=== PATIENT | female | born 1990 | race Caucasian/White ===

== ENCOUNTER 2022-06-27 11:26 | Outpatient (CLI) | payer BC, SELFPAY ==
[2022-06-27 11:35] VITALS: PULSE 96; O2SAT 98
[2022-06-27 11:50] VITALS: BP 111/57; PULSE 90; RESP 16; TEMP 37.3; O2SAT 98
[2022-06-27 11:53] VITALS: BP 111/57; PULSE 90
--- NOTE | 2022-06-27 12:32 | PC.OBNST ---
NST Note NST Note Start: 06/27/22 11:27 Freq: ONCE Status: Active Protocol: Document 06/27/22 12:31 HOLDENYH (Rec: 06/27/22 12:32 CUELIZABETHY [id number]) NST Note 3 Para (# of births) 1 EDC 07/10/22 Gestational Age In Weeks & Days 38 Weeks & 1 Days Patient Presented with Complaint(s) of Pain If Pain, describe location Upper abdominal pain Reactive Yes Appropriate for Gestational Age Yes RN Suzie Bautista RN Date 06/27/22 Reactive Yes Appropriate for Gestational Age Yes SHANAE Barajas RN Date 06/27/22 OB NST charge Yes Complete NST Note via Write Note Yes The provider's electronic signature indicates the NST is reactive/appropriate for gestational age. *Note to provider: If an addendum is required, open the patient's chart and click on the note under the Nurse/Allied Health tab.
== END 2022-06-27 12:15 | disposition home or self-care (01) ==
LOC: OB OUT 11:26 → OB 11:26
PROVIDERS: PCP Family Medicine; Visit Provider Family Medicine
DX: O47.1 False labor at or after 37 completed weeks of gestation (principal); Z3A.38 38 weeks gestation of pregnancy
CPT/HCPCS: 59025; 99213

== ENCOUNTER 2022-06-30 17:58 | Outpatient (CLI) | payer BC, SELFPAY ==
[2022-06-30 18:26] VITALS: RESP 18; TEMP 37.2
[2022-06-30 18:27] VITALS: BP 109/56
[2022-06-30 18:35] VITALS: PULSE 83; O2SAT 98
--- NOTE | 2022-06-30 19:15 | PC.OBNST ---
NST Note NST Note Start: 06/30/22 18:10 Freq: ONCE Status: Active Protocol: Document 06/30/22 19:13 LUZ ELENA (Rec: 06/30/22 19:14 LUZ ELENA [id number]) NST Note 3 Para (# of births) 1 EDC 07/10/22 Gestational Age In Weeks & Days 38 Weeks & 4 Days Patient Presented with Complaint(s) of Other Other Complaints Increased movement Reactive Yes Appropriate for Gestational Age Yes RN Kimberlyn Rojas RN Date 06/30/22 Reactive Yes Appropriate for Gestational Age Yes SHANAE Noguera RN Date 06/30/22 OB NST charge Yes Complete NST Note via Write Note Yes The provider's electronic signature indicates the NST is reactive/appropriate for gestational age. *Note to provider: If an addendum is required, open the patient's chart and click on the note under the Nurse/Allied Health tab.
== END 2022-06-30 19:00 | disposition home or self-care (01) ==
LOC: OB OUT 17:59 → OB 18:00
PROVIDERS: PCP Family Medicine; Visit Provider Family Medicine
DX: O35.8XX0 Maternal care for other (suspected) fetal abnormality and damage, not applicable or unspecified (principal); Z3A.38 38 weeks gestation of pregnancy
CPT/HCPCS: 59025; 99213

== ENCOUNTER 2022-07-18 17:01 | Inpatient (IN) | payer BC, SELFPAY ==
[2022-07-18 17:24] VITALS: PULSE 86; O2SAT 98
[2022-07-18 17:27] VITALS: BP 100/56; PULSE 90; RESP 16; TEMP 37
[2022-07-18] MEDS: miSOPROStoL 25 MCG/0.25 TABLET PO ×3 (18:25→22:30)
[2022-07-18 18:36] VITALS: BMI 41.6
[2022-07-18 19:16] LABS: SARS PCR* Negative SARS-CoV-2 (Negative)
[2022-07-18 19:25] VITALS: BP 110/64; PULSE 92; PULSE 95; RESP 18; TEMP 36.9; O2SAT 98
[2022-07-18 19:31] LABS: Basophils Absolute Auto 0.02 K/uL (0.00-0.30); Basophils Percent Auto 0.2 % (0.0-3.0); Eosinophils Absolute Auto 0.05 K/uL (0.00-0.50); Eosinophils Percent Auto 0.5 % (0.0-7.0); Hematocrit 34.1 % (33.0-51.0); Hemoglobin* 11.4 gm/dL (12.0-16.0); Immature Granulocytes Abs Auto 0.01 K/uL (0.00-0.30); Immature Granulocytes Pct Auto 0.1 %; Lymphocytes Percent Auto 19.7 % (20-44); Mean Corpuscular HGB Conc 33 gm/dL (32-36); Mean Corpuscular Hemoglobin 30 pg (26-34); Mean Corpuscular Volume 89 fL (80-100); Monocytes Percent Auto 7.7 % (0.0-11.0); Neutrophils Absolute Auto 7.26 K/uL (1.7-7.0); Neutrophils Percent Auto 71.8 % (42.0-72.0); Platelet Count* 284 K/uL (140-440); RDW Coefficient of Variation % 14.8 % (11.5-15.5); Red Blood Count 3.85 m/uL (4.00-5.20); White Blood Count* 10.11 K/uL (4.50-11.00)
[2022-07-18 19:32] LABS: Slide Review Reflex No
--- NOTE | 2022-07-18 19:49 | PM.OBHPLI ---
OB - H&P: HPI Labor/Induction History of Present Illness Time Seen by Provider: 19:49 Date Seen: 07/18/22 Chief Complaint: The patient is a 32 year old 3 para 1 at 41.1 weeks gestation by LMP and consistent with 9 week ultrasound, who presents with IOL for postdates. Chief complaint: Maternity : 3 Para: 1 Indications for induction: other (postdates) Narrative: Shirley Hart is a 32 year old female who presents for IOL for postdates. She did have IUGR during that resolved with growth ultrasounds. Her was conceived by use of femara and ovidrel for ovulation. Conceived at home. (no IUI). Ovulation day should have been 10/19 or 10/20. LMP 10/03/21. First child (son) had ASD/VSD, so echo was done and was found to be WNL. History of Present Dating criteria: based on LMP care: good care Ultrasounds: normal 1st trimester US and normal mid trimester US Abnormal ultrasound findings: IUGR, resolved Medical complications: none Labs Blood type: B (-) negative Rubella: immune RPR/VDLR: nonreactive GBS status: negative HBsAG: negative Review of Systems Status of ROS: Reports: 10 or more systems reviewed and unremarkable except as noted in History and below Const: Reports: fatigue; Denies: fever or chills Eyes: Denies: change in vision or blurry vision ENMT: Denies: throat pain Cardio: Reports: lightheadedness; Denies: chest pain, palpitations, edema or shortness of breath with exertion Resp: Denies: shortness of breath GI: Denies: abdominal pain, nausea or vomiting : Denies: painful urination Musculo: Denies: extremity swelling Integ/Breast: Denies: rash Neuro: Reports: headache (resolved with tylenol over the weekend. ) and dizziness (resolved) Endo: Reports: fatigue Meds Home Medications and Allergies Home Medications Medication Instructions Recorded Confirmed Type famotidine 20 mg tablet 20 mg PO DAILY 06/30/22 07/18/22 History prenat.vits,sharyn,[id number] 1 tab PO DAILY 06/30/22 07/18/22 History Allergies Allergy/AdvReac Type Severity Reaction Status Date / Time No Known Drug Allergies Allergy Verified 06/30/22 18:30 OB - H&P: Exam Physical Exam: Vital signs: Temp Pulse Resp BP Pulse Ox 98.6 F 92 16 110/64 98 07/18/22 17:27 07/18/22 19:25 07/18/22 17:27 07/18/22 19:25 07/18/22 19:25 Constitutional: Constitutional: no acute distress Routine HEENT Exam: Head: Present atraumatic and normal inspection Routine Neck Exam: Neck: Present full ROM Routine Chest/Breast/Axilla Exam: Chest wall: Absent tenderness Routine Respiratory Exam: Respiratory: Present CTA bilaterally Routine Cardiovascular Exam: Cardiovascular: RRR, S1 and S2 Detailed Labor and Delivery Exam: Patient Gravid: Yes Contraction frequency (min): 4 Routine Back/Spine/Pelvis Exam: Back/Spine: full ROM Routine Skin Exam: Present intact Routine Neurological Exam: Present alert and oriented X3 Routine Psychiatric Exam: Present normal affect and normal thought process OB - Results Labs Labs: Short CBC 07/18/22 Range/Units 19:22 WBC 10.11 (4.50-11.00) K/uL Hgb 11.4 L (12.0-16.0) gm/dL Hct 34.1 (33.0-51.0) % Plt Count 284 (140-440) K/uL OB - Problem Based A/P Additional Plan (1) Post-dates : Status: Acute Plan - Here for IOL. Patient has Saeed score of 2, will need cervical ripening. Will start with PO cytotec protocol with plan to transition to pitocin when saeed score appropriate (as needed). Anticipate . Desire epidural. Delivery/Labor/Induction Plan Plan: induction Induction method: per misoprostol protocol
[2022-07-18 20:27] VITALS: BP 121/62; PULSE 82
[2022-07-18] MEDS: hydrOXYzine pamoate 25 MG CAPSULE 100 MG PO (20:43)
[2022-07-18] MEDS: MORPHINE 10 MG/ML inj IM (20:44)
[2022-07-18 22:27] VITALS: BP 124/60; PULSE 76; RESP 18; TEMP 36.7
[2022-07-19] VITALS (54 sets, daily range): BP systolic 97–143; BP diastolic 51–75; PULSE 79–121; RESP 16–20; TEMP 36.8–37.9; O2SAT 76–100
[2022-07-19] MEDS: miSOPROStoL 25 MCG/0.25 TABLET PO ×2 (00:54→04:42)
[2022-07-19] MEDS: LACTATED RINGERS 1000 ML 1,000 ML IV (03:10)
[2022-07-19] MEDS: LACTATED RINGERS 1000 ML 1,000 ML 125 ML IV ×2 (10:29→14:11)
--- NOTE | 2022-07-19 10:42 | PM.OBPNL ---
Subjective Time Seen by Provider: 10:43 Date Seen: 07/19/22 Objective Vital Signs: Last Vital Signs Temp 98.5 F 07/19/22 07:42 Pulse 81 07/19/22 07:42 Resp 16 07/19/22 07:42 BP 112/53 L 07/19/22 07:42 Pulse Ox 98 07/19/22 07:42 Pelvic Exam Dilation (cm): 2 Effacement (%): 50 Station: -2 Contractions Monitor mode: External Contraction Frequency: 4-5 Contraction pattern: Regular Contraction intensity: Moderate Pitocin Rate (mU/min): 0 Assessment Assessment: induction ongoing Station: -2 Status: Category l Heart Rate Baseline: 140 Intermediate Variability: Moderate (6-25) Monitor Accelerations: Present Monitor Decelerations: None Labor Progress: Patient received 6 doses of cytotec overnight. She progressed to a saeed score of 4 from 2. Unfortunately, requiring more cervical ripening. I was called to bedside at 330 AM to evaluate position of baby as nursing could no longer feel presenting part. Ultrasound confirmed cephalic positioning. Plan Plan: - Discussed cervical ripening options with patient. She would like to proceed with cook catheter and plan for low dose pitocin. Cook placed with 60 and 60 mls of saline in both uterine and vaginal balloons. Patient tolerated well. Contractions have become more painful since placemen tof catheter and patient requests fentanyl. Will plan on epidural when needed. Anticipate .
[2022-07-19] MEDS: fentaNYL 100 MCG/2 ML inj IVP (10:53)
[2022-07-19] MEDS: ROPIVACAINE 0.2% 100 ml 100 ML 12 MG EPIDURAL (11:31)
--- NOTE | 2022-07-19 11:58 | P.ANBPRC_ITS ---
PFSH PFS Social History Smoking Status: Former smoker Meds Home Medications and Allergies Home Medications Medication Instructions Recorded Confirmed Type famotidine 20 mg tablet 20 mg PO DAILY 06/30/22 07/18/22 History prenat.vits,sharyn,[id number] 1 tab PO DAILY 06/30/22 07/18/22 History Allergies Allergy/AdvReac Type Severity Reaction Status Date / Time No Known Drug Allergies Allergy Verified 06/30/22 18:30 Results Labs Labs: Laboratory Results - last 24 hr 07/18/22 07/18/22 07/18/22 18:32 19:22 19:22 WBC 10.11 RBC 3.85 L Hgb 11.4 L Hct 34.1 MCV 89 MCH 30 MCHC 33 RDW Coeff of Slim 14.8 Plt Count 284 Neut % (Auto) 71.8 Lymph % (Auto) 19.7 L [place] % (Auto) 7.7 Eos % (Auto) 0.5 Baso % (Auto) 0.2 Neut # (Auto) 7.26 H Lymph # (Auto) 2.00 [place] # (Auto) 0.80 Eos # (Auto) 0.05 Baso # (Auto) 0.02 SARS-CoV-2 (PCR) Negative SARS-CoV-2 Blood Type B Negative Antibody Screen NEGATIVE Vital Signs Vital Signs: Last Vital Signs Temp 98.7 F 07/19/22 11:22 Pulse 94 07/19/22 11:51 Resp 18 07/19/22 11:22 BP 123/57 L 07/19/22 11:51 Pulse Ox 97 07/19/22 11:47 Weight: 103.238 kg Height: 157.48 cm Anesthesia Procedures Epidural Insertion Patient Location: OB Start Time: 11:30 Stop Time: 12:30 Start Date: 07/19/22 Stop Date: 07/19/22 Reason for Block: procedure for pain Patient Position: sitting Performed By: Shaquille Diego Preanesthetic Checklist: IV checked, risks and benefits discussed, monitors and equipment checked, pre-op evaluation and anesthesia consent Prep: chlorhexidine gluconate Monitoring: blood pressure monitoring, continuous pulse oximetry and heart rate Approach: midline Vertebral Space: lumbar (1-5) Epidural Technique: ANAMARIA saline Needle Type: Tuohy needle Needle gauge: 17 Needle Length (cm): 10 cm Needle Insertion Depth (cm): 8 Catheter Gauge: 19 Catheter at skin depth (cm): 12 Test Dose Result: negative and lidocaine 1.5% with epinephrine 1 to 200,000 Events: cerebrospinal fluid and paresthesia
[2022-07-19] MEDS: OXYTOCIN 30 unit/500 ML in NS 30 UNIT/500 ML BAG IVPB (12:15)
[2022-07-19] MEDS: LIDOCAINE 1 % PF 30 ML INJECTION (20:06)
--- NOTE | 2022-07-19 20:30 | W.PM.OBVAGDE ---
OB Procedure Vag Delivery Mother Details Mother Details: The patient is a 32 year-old, 3, Para 1, admitted on 07/18/22 at 41.1 Days gestation. : 3 Para: 1 Weeks Gestation: 41.1 Admission Date: 07/18/22 Additional Details Amniotic Membrane Status: AROM Amniotic Membrane Fluid Description: Meconium Stained Analgesia/Anesthesia Type: Epidural and Fentanyl Waterbirth: No Pitcoin: Yes Intrapartal Events: Labor Induction Induction Method: Intracervical balloon catheter, per misoprostol protocol, per pitocin protocol and AROM Delivery augmentation: rupture of membranes and pitocin Labor Onset: 15:25 Complete: 19:48 Pushin:52 Heart: heart tones during second stage showed early decels. Occasional late decels related to maternal positioning. Between last 2 pushes, FHT in 90s without recovery. Delivery Details Delivery Date: 07/19/22 Delivery Time: 19:58 Route of delivery: Gender: Female Infant Viability: Alive; Heart Rate Present Position at Delivery: OA Delivery Details: Patient was admitted for IOL for postdates. She received PO cytotec overnight x 6 doses. I was called admitted attorneys to bedside as presenting part was not palpable by nursing. Bedside ultrasound showed cephalic positioning. Patient's saeed score was 4 in the morning of 07/19 so cook catheter was placed at 1030. Low dose pitocin was started at 1215. Cook catheter fell out at 1500. Patient received epidural for analgesia with good results. She progressed well. We did AROM at 192 of light meconium fluid. Patient progressed quickly thereafter becoming complete at 1948. Began pushing at 1951, pushing very effectively and delivered a viable female infant at 1957. Delivered over intact perineum via spontaneous vaginal delivery. Infant was placed on maternal abdomen.? Cord was clamped and cut after a 30-60 second delay. Nose and mouth were bulb suctioned.? weight pending. 1 Minute Interval Total Score: 8 5 Minute Interval Total Score: 9 Additional Details Shoulder Dystocia: No Placenta Delivery Time: 20:04 Placental Delivery Description: Spontaneous Delivery repair: Vicryl Procedure Done: Global Blood Loss: 50 Laceration: Perineal - 2nd Degree Episiotomy Description: None Blood Loss Measurement Type: QBL Bakri Used: No Sponge/Need Count Correct: Yes Cord Vessel Description: 3 Vessels Event Summary Status: Mother and infant were stable after delivery. Disposition: floor
[2022-07-19] MEDS: ACETAMINOPHEN 500 MG TABLET 1000 MG PO (20:44)
[2022-07-20] VITALS (7 sets, daily range): BP systolic 107–134; BP diastolic 54–90; PULSE 69–90; RESP 16–20; TEMP 36.4–37.1; O2SAT 95–99
[2022-07-20] MEDS: IBUPROFEN 600 MG TABLET PO ×4 (00:06→20:39)
[2022-07-20] MEDS: ACETAMINOPHEN 500 MG TABLET 1000 MG PO ×3 (04:37→17:17)
--- NOTE | 2022-07-20 07:24 | PM.OBPNVD1 ---
OB - PN:Subj Subjective Time Seen by Provider: 07:24 Date Seen: 07/20/22 Patient comments OB post-: no complaints, pain well controlled and tolerating diet [place] infant status: and doing well [place] feeding status: exclusively OB - PN: Obj Exam Physical Exam: Vital signs: Temp Pulse Resp BP Pulse Ox O2 Del Method 97.6 F 85 16 119/78 99 07/20/22 04:33 07/20/22 04:33 07/20/22 04:33 07/20/22 04:33 07/20/22 04:33 07/20/22 04:33 Constitutional: Constitutional: no acute distress Routine HEENT Exam: Head: Present normal inspection Routine Neck Exam: Neck: Present full ROM Routine Respiratory Exam: Comments: breathing comfortably Routine Abdominal Exam: Fundus: Present firm Routine Extremities Exam: Extremities: Present normal inspection; Absent calf tenderness Routine Neurological Exam: Neurological: Present alert and oriented X3 OB - PN: A/P Vaginal Delivery Assessment and Plan (1) Post-dates : Status: Acute (2) (normal spontaneous vaginal delivery): Status: Acute Plan day: 1 Plan: routine care Comments: Plan to discharge morning 07/21
[2022-07-20] MEDS: DOCUSATE SODIUM 100 MG CAPSULE PO (07:36)
[2022-07-20] MEDS: OXYCODONE 5 MG TABLET PO ×3 (10:53→20:39)
[2022-07-21] MEDS: ACETAMINOPHEN 500 MG TABLET 1000 MG PO ×2 (00:25→08:25)
[2022-07-21 00:26] VITALS: BP 127/89; PULSE 79; RESP 20; TEMP 36.4; O2SAT 98
[2022-07-21] MEDS: IBUPROFEN 600 MG TABLET PO ×2 (02:30→10:39)
--- NOTE | 2022-07-21 08:22 | P.DS_ITS ---
DS: Providers Provider Date Seen: 07/21/22 Date of admission: 07/18/22 17:01 Primary care physician: Evangelina Franks MD Admitting Clinician: Evangelina Franks MD Attending Physician on discharge: Evangelina Franks MD DS: Diagnosis Discharge Diagnosis (1) (normal spontaneous vaginal delivery): Status: Acute Exam Const: Vital Signs, click to edit/add: Vital Signs - 24 hr 07/20/22 12:35 07/20/22 16:50 07/20/22 20:16 Temperature 98.1 F 98.0 F 97.9 F Pulse Rate [Blood Pressure Cuff] 82 79 79 Respiratory Rate 16 16 20 Blood Pressure [Le ft Arm] 119/78 134/54 L 122/85 Pulse Oximetry 95 98 98 Oxygen Delivery Me thod Room Air Room Air Room Air 07/21/22 00:26 Temperature 97.6 F Pulse Rate [Blood Pressure Cuff] 79 Respiratory Rate 20 Blood Pressure [Le ft Arm] 127/89 Pulse Oximetry 98 Oxygen Delivery Me thod Room Air Common normals: no apparent distress and average body habitus GI: Common normals: Normal to inspection, nondistended, normoactive bowel sounds present and soft to palpation Palpation: soft Other: uterus firm 1 cm above umbilicus OB - DS: Summary Hospital Course Hospital Course: The patient is a 32 year old G 2 P 2 at 41 weeks gestation that was admitted to the Center on 07/18/22 for IOL for post dates. She had an uncomplicated vaginal delivery. She delivered a viable female . She is breast feeding. the patient has done well. Peripartum Data Infant delivery method: Vaginal complications: none Infant Gender: Female Infant Discharge Plan: Home Status at Discharge Functional status at discharge: independent ambulation Overall status at discharge: patient is progressing back to baseline Time Spent with Patient Time attestation: Total time spent providing and/or coordinating discharge services: Time spent: Less than 30 minutes Discharge Plan Discharge Disposition: Home, Self-Care Date of Admission: 07/18/22 17:01 Attending Provider on Discharge: Elizabeth Glynn Primary Care Provider: Evangelina Franks Condition: Stable Anticipated Discharge Date/Time: 07/21/22 09:00 Discharge Medications: Continued famotidine 20 mg tablet 20 mg PO DAILY prenat.vits,sharyn,[id number]-itba-[id number] Tablet 1 tab PO DAILY Discharge Orders: Discharge Order (Routine); Ordered 07/21/22 Ordered By: Elizabeth Glynn Patient Education: OB Vaginal/Breast Feeding Activity Level: Activity as Tolerated Activity Detail: pelvic rest x 6 weeks-- nothing in vagina Discharge Diet: Regular Follow Up Appointments: Evangelina Franks MD [Primary Care Provider] - (6 week visit. Sooner with concerns. ) Forms: [employer] Info Instructions
[2022-07-21] MEDS: DOCUSATE SODIUM 100 MG CAPSULE PO (08:26)
[2022-07-21 10:40] VITALS: PULSE 86; RESP 20; TEMP 36.5; O2SAT 98
== END 2022-07-21 12:05 | disposition home or self-care (01) | DRG 560 ==
PROVIDERS: Admitting Provider Family Medicine; PCP Family Medicine; Visit Provider Family Medicine
DX: O48.0 Post-term pregnancy (principal); O77.0 Labor and delivery complicated by meconium in amniotic fluid; O70.1 Second degree perineal laceration during delivery; Z3A.41 41 weeks gestation of pregnancy; Z37.0 Single live birth
CPT/HCPCS: 01967; 36415; 59200; 76815; 85018; 85025; 86850; 86900; 86901; 87635; A9270; C1726; J2001; J2270; J2370; J2795; J3010; J7120; S0020

== ENCOUNTER 2023-02-07 13:45 | Emergency (ER) | payer BC, SELFPAY ==
[2023-02-07 13:57] VITALS: BP 129/79; PULSE 90; RESP 18; TEMP 37.1; O2SAT 100; BMI 36.4
--- NOTE | 2023-02-07 15:27 | ED_ITS ---
HPI - General Adult General Chief complaint: Head Injury/Pain Stated complaint: [place] PCP ref-spinal menig test Time Seen by Provider: 02/07/23 14:56 History of Present Illness HPI narrative: This 32-year-old female was at clinic and was sent here because of possibility of meningeal signs. The patient began to have symptoms in her left flank that turned out to be shingles. This started 6 days ago. She has now developed some headache and feels that her neck is stiff. She states that she measured a fever this morning at about 3:00 a.m.. The temperature then was 101.2? F. She did take some Tylenol at that time and has not had any antipyretics since then. She arrives here with normal vital signs. She was told that her clinic appointment that she should come to the emergency department because of a need for spinal tap. The patient states that she does have a history of migraine headaches. She does not report any back pain. Related Data Home Medications Medication Instructions Recorded Confirmed famotidine 20 mg tablet 20 mg PO DAILY 06/30/22 02/07/23 prenat.vits,sharyn,[id number] 1 tab PO DAILY 06/30/22 02/07/23 Previous Rx's Medication Instructions Recorded hydrocodone 5 mg-acetaminophen 325 1 tab PO Q4-6H PRN pain #15 tabs 02/07/23 mg tablet ketorolac 10 mg tablet 10 mg PO Q8H 5 days #15 tabs 02/07/23 Allergies Allergy/AdvReac Type Severity Reaction Status Date / Time No Known Drug Allergies Allergy Verified 06/30/22 18:30 Review of Systems Status of ROS: Reports: 10 or more systems reviewed and unremarkable except as noted in History and below Narrative: Constitutional: No fevers, no weight gain or loss. Eyes: No discharge. No vision changes. HENT: No congestion, no sore throat, no ear pain. Cardiovascular: No chest pain, no palpitations. Respiratory: No shortness of breath, no wheezes, no cough. Gastrointestinal: No abdominal pain, no vomiting, no diarrhea. Genitourinary: No dysuria, no hematuria. Musculoskeletal: Normal range of motion. Skin: Herpes zoster on the left flank region. Neurological: No dizziness, weakness, sensory change, speech change. Endo/Heme/Allergies: No bruising or bleeding. No polydipsia. Pysch: no suicidality, no anxiety, no insomnia. All other systems reviewed and are negative. [facility] Medical History (Updated 02/07/23 @ 15:33 by Darrel Ny MD) (normal spontaneous vaginal delivery) ?O80 - Encounter for full-term uncomplicated delivery (ICD-10) Post-dates ?O48.0 - Post-term (ICD-10) Social History Smoking Status: Former smoker Exam Narrative: Exam Narrative: Constitutional: Well-developed, well-nourished, no acute distress. HEENT: Normocephalic, atraumatic. Neck: Normal range of motion. Nontender. Supple. She is able to flex her head down to her chest without difficulty. Heart: Regular. No murmurs. Normal rate. Intact distal pulses. Lungs: Clear to auscultation. No chest discomfort. No wheezes, rhonchi, or rales. Abdomen: Normal bowel sounds. Nontender. No rebound tenderness. Genitalia: Deferred. Back: No midline tenderness. Normal range of motion. Extremities: Normal range of motion. No injury. Skin: Intact. No rash. Warm. No erythema or pallor. Neurologic: No altered sensation. No weakness. Alert and oriented. No facial asymmetry. Normal mentation. No unilateral neurologic symptoms. Psychiatric: No suicidality. No anxiety or depression. No insomnia. Nursing notes and vitals signs are reviewed. Const: Vital Signs, click to edit/add: Vital Signs - 24 hr 02/07/23 13:57 Temperature 98.8 F Pulse Rate [Right Pulse Oximeter] 90 Respiratory Rate 18 Blood Pressure [Ri ght Upper Arm] 129/79 Pulse Oximetry 100 Oxygen Delivery Me thod Room Air Course Vital Signs Vital signs: Initial Vital Signs Temperature 98.8 F 02/07/23 13:57 Temperature Source Temporal Artery Scan 02/07/23 13:57 Pulse Rate 90 02/07/23 13:57 Respiratory Rate 18 02/07/23 13:57 Blood Pressure 129/79 02/07/23 13:57 Blood Pressure Mean 95 02/07/23 13:57 Blood Pressure Position Sitting 02/07/23 13:57 Pulse Oximetry 100 02/07/23 13:57 Oxygen Delivery Method Room Air 02/07/23 13:57 Vital Signs Temperature 98.8 F 02/07/23 13:57 Pulse Rate 90 02/07/23 13:57 Respiratory Rate 18 02/07/23 13:57 Blood Pressure 129/79 02/07/23 13:57 Pulse Oximetry 100 02/07/23 13:57 Oxygen Delivery Method Room Air 02/07/23 13:57 Temperature 98.8 F 02/07/23 13:57 Pulse Rate 90 02/07/23 13:57 Respiratory Rate 18 02/07/23 13:57 Blood Pressure 129/79 02/07/23 13:57 Pulse Oximetry 100 02/07/23 13:57 Oxygen Delivery Method Room Air 02/07/23 13:57 Medical Decision Making MDM Narrative Medical decision making narrative: This patient has shingles and has some headache and reports a fever this morning. She arrives here with normal vital signs and does not appear to be in any acute distress. Her exam is normal except for some skin lesions in her left flank typical of shingles. I did discuss indications for a lumbar puncture but stated that she is not tripping those triggers and this invasive procedure would not likely improve on any diagnosis. She then declined this stating that she prefer not to have this study done. I did describe signs and symptoms that would indicate a need for return and re-evaluation. This patient has shingles and has a history of migraine headaches. She is beyond the time frame where antiviral medications would be helpful for her. I did prescribe Toradol and [place] for symptomatic relief. Discharge Plan Discharge Clinical Impression: Herpes zoster, Migraine Patient Disposition: Home, Self-Care Condition: Stable Additional Instructions: Take medication as needed and directed. Follow up with MD or return if symptoms are worsening. Prescriptions: New hydrocodone-acetaminophen 5-325 mg tablet 1 tab PO Q4-6H PRN (Reason: pain) Qty: 15 0RF ketorolac 10 mg tablet 10 mg PO Q8H 5 Days Qty: 15 0RF No Action famotidine 20 mg tablet 20 mg PO DAILY prenat.vits,sharyn,[id number] Tablet 1 tab PO DAILY Follow Up/Referrals: Evangelina Franks MD [Primary Care Provider] - Stand Alone Forms: [employer] Info Instructions
--- NOTE | 2023-02-11 07:57 | ED.NURSE ---
Pt called stating that she continues to have pain, even with taking medications, using calamine and putting breast milk on her sores. Wondering if there is anything further she can do. per d/c notes, Dr matt wrote for pt to follow up with her MD or return with worsening sx. Pt will call her primary.
== END 2023-02-07 16:02 | disposition home or self-care (01) ==
LOC: ED 16:02
PROVIDERS: Emergency Provider Emergency Medicine Emergency Medical Services; PCP Family Medicine
DX: B02.9 Zoster without complications (principal); G43.909 Migraine, unspecified, not intractable, without status migrainosus
CPT/HCPCS: 99283; 99284